=== PATIENT | female | born 1980 | race Two or more races ===

== ENCOUNTER 2021-06-05 15:10 | Emergency (ER) | payer MEDICAID ==
[~2021-06-05] VITALS: Ht 172.7 cm; Wt 63.5 kg
[2021-06-05] MEDS: LORazepam 2MG/ML-1ML VIAL IM ONE (16:58)
[2021-06-05] MEDS: diphenhdrAMINE HCL 50 MG/1 ML VL IM ONE ×2 (16:58→21:36)
[2021-06-05] MEDS: HALOPERIDOL LACTATE 5 MG/ML INJ VIAL IM ONE ×2 (16:59→21:36)
[2021-06-05] MEDS ORDERED: OLANZapine 5 MG TAB PO ONE (20:45)
[2021-06-05] MEDS ORDERED: HALOPERIDOL LACTATE 5 MG/ML INJ VIAL ONE (21:26)
[2021-06-05 22:39] LABS: Basophils # (auto) 0 10 ^3/uL (0-0.2); Basophils % (auto) 0.5 % (0.0-2.0); Eosinophils # (auto) 0.1 10 ^3/uL (0-0.8); Eosinophils % (auto) 0.6 % (0.0-7.0); Hematocrit 35.1 % (36.0-46.0); Hemoglobin 10.7 g/dL (12.2-16.2); Lymphocytes # (auto) 0.9 10 ^3/uL (0.4-5.4); Mean Corpuscular Hemoglobin 22.5 pg (28.0-32.0); Mean Corpuscular Hgb Conc. 30.6 g/dL (32.0-36.0); Mean Corpuscular Volume 73.6 fL (80.0-100.0); Monocytes # (auto) 0.8 10 ^3/uL (0-1.3); Monocytes % (auto) 9.5 % (0.0-12.0); Neutrophils # (auto) 6.2 10 ^3/uL (1.6-8.6); Neutrophils % (auto) 78.4 % (37.0-80.0); Red Blood Cells 4.76 10^6/uL (4.0-5.20); Red Cell Distribution Width 17.9 % (11.8-14.3)
[2021-06-05 22:57] LABS: Albumin 3.8 g/dL (3.4-5.0); BUN/Creatinine Ratio 21.1; Calcium 8.5 mg/dL (8.5-10.1); Potassium 3.8 mmol/L (3.5-5.1)
[2021-06-05 23:00] LABS: Bilirubin, Total 0.9 mg/dL (0.2-1.0); Total Protein 7.2 g/dL (6.4-8.2)
[2021-06-06 02:08] LABS: Amphetamine Screen, Urine NEGATIVE (NEGATIVE); Barbiturate Scree,Urine NEGATIVE (NEGATIVE); Benzodiazephine Screen, Urine NEGATIVE (NEGATIVE); Cannabinoid Screen, Urine NEGATIVE (NEGATIVE); Cocaine Screen, Urine NEGATIVE (NEGATIVE); Opiate Scree,Urine NEGATIVE (NEGATIVE); Phencyclidine Screen, Urine NEGATIVE (NEGATIVE)
[2021-06-06 02:29] LABS: Urine Bacteria FEW /hpf (None Seen); Urine Blood Negative /uL (Negative); Urine Mucus FEW (None Seen); Urine Specific Gravity 1.032 (1.001-1.035); Urine WBC 4 /hpf (0 - 5)
[2021-06-06] MEDS ORDERED: cefTRIAXone 1GM/50ML D5W 50 ML IV ONE (06:00)
[2021-06-06] MEDS: LORazepam 2MG/ML-1ML VIAL IM ONE (06:10)
[2021-06-06 09:19] VITALS: BP 94/59
== END 2021-06-06 11:14 | disposition home or self-care (01) ==
LOC: ER 15:10 → EDBD 15:10 → ER 06-06 11:14
DX: F20.9 Schizophrenia, unspecified (principal)
CPT/HCPCS: 36415; 80053; 80307; 80320; 81001; 85025; 87086; 96365; 96372; 99285; J0696; J1200; J1630; J2060